=== PATIENT | male | born 1955 | race Caucasian/White ===

== ENCOUNTER 2018-02-03 07:18 | Inpatient (IN) | payer OTHER ==
[~2018-02-03] VITALS: Ht 177.8 cm; Wt 61.3 kg
[~2018-02-03 07:18] MED LIST: ACEPHEN650 M1 PR; ACETAMINOPHEN325 M2 PO; ACETAMINOPHEN325 M3 PO; ALBUTEROL2.5 MG/3 M INH/SOL; AMOX-CLAV 875-1 EACH PO; ANBESOL9 G1 TOP; ATORVASTATIN CA40 M1 PO; AUGMENTIN 875-1 EACH PO; BACLOFEN10 M1 PO; BACLOFEN20 M1 PO; BISACODYL10 M1 RC; CLONAZEPAM0.5 M2 PO; DEPAKOTE SPRIN125 M1 PO; DEPAKOTE125 M1 PO; DEPAKOTE500 M1 PO; DIVALPROEX SOD500 M2 PO; DRISDOL50000 UNIT PO; DULCOLAX10 M1 RC; FENOFIBRATE160 M1 PO; FISH OIL 1,0001 EAC1 PO; FLEET ENEMA133 ML RC; GENERLAC10 GM/151 PO; KLONOPIN0.5 M1 PO; LACTAID3000 UNI1 PO; LACTAID3000 UNIT PO; LACTASE3000 UNIT PO; LACTULOSE10 GM/153 PO; LASIX20 M1 PO; LIPITOR40 M1 PO; LOFIBRA160 M1 PO; MAPAP325 M1 PO; MILK OF MA400 MG/52 PO; NUEDEXTA 20-101 EACH PO; OMEPRAZOLE20 M3 PO; PAIN RELIEVER325 MG PO; PERIOGARD473 ML PO; POTASSIUM CHLO20 ME4 PO; PRILOSEC OTC20 M1 PO; SENNA-GEN8.6 MG PO; SENNA8.6 M3 PO; SERTRALINE HCL100 MG PO; THERA-M1 EACH PO; THERAGRAN PO; TRIHEXYPHENIDYL2 M2 PO; UNASYN 3 GM VIAL3 GM IV; VITAMIN C250 M3 PO; VITAMIN D250000 UNIT PO; ZOLOFT100 M1 PO
--- NOTE | 2018-02-03 07:43 | ED DYSPNEA/ASTHMA COMPLAINT ---
History of Present Illness General Chief Complaint: Dyspnea (COPD, CHF, Other) Stated Complaint: SOB Source: old records, EMS Exam Limitations: unable to give history Vital Signs & Intake/Output Vital Signs & Intake/Output Vital Signs Date Time Temp Pulse Resp B/P B/P Pulse O2 O2 Flow FiO2 Mean Ox Delivery Rate 02/04 1426 98.0 88 20 104/60 92 02/04 0800 95 Room Air Room Air 02/04 0720 97.7 70 20 124/72 98 Nasal 2.0L Cannula 02/04 0000 Room Air 02/03 2104 99.0 93 16 106/58 91 Room Air 02/03 2027 Room Air ED Intake and Output 02/04 0000 02/03 1200 Intake Total 240 Output Total Balance 240 Intake, Oral 240 Number 1 Bowel Movements Patient 135 lb 180 lb Weight Weight Bed scale Estimated Measurement Method Allergies Coded Allergies: lactose (UNKNOWN 02/08/16) Reconcile Medications Acetaminophen 325 MG TABLET 2 TAB PO Q6H PRN PAIN/TEMP>101 (Reported) Acetaminophen (Acephen) 650 MG SUPP.RECT 1 SUPP GA Q6H PRN PAIN/TEMP>101 ( Reported) Ascorbic Acid (Vitamin C) 250 MG TABLET 1 TAB PO BID SUPPLEMENT (Reported) Atorvastatin Calcium 40 MG TABLET 1 TAB PO DAILY CHOLESTEROL (Reported) Baclofen 10 MG TABLET 1.5 TAB PO TID MUSCLE SPASM (Reported) Bisacodyl (Dulcolax) 10 MG SUPP.RECT 1 SUP RC DAILY PRN CONSTIPATION ( Reported) Clonazepam 0.5 MG TABLET 1 TAB PO BID mental health (Reported) Dextromethorphan HBr/Quinidine (Nuedexta 20-10 MG Capsule) 20 MG-10 MG CAPSULE 1 TAB PO BID MOOD STABILITY (Reported) Divalproex Sodium (Depakote) 125 MG TABLET.DR 2 TAB PO 0900 mood stabilizer ( Reported) Divalproex Sodium (Depakote) 125 MG TABLET.DR 4 TAB PO AT BEDTIME MOOD STABILITY (Reported) Ergocalciferol (Vitamin D2) (Vitamin D2) 50,000 UNIT CAPSULE 1 CAP PO Q30D SUPPLEMENT (Reported) Furosemide (Lasix) 20 MG TABLET 1 TAB PO DAILY FLUID RETENTION (Reported) Lactase (Lactaid) 3,000 UNIT TABLET 1 TAB PO TID ENZYME (Reported) Lactulose (Generlac) 10 GM/15 ML SOLUTION 30 ML PO BID CONSTIPATION (Reported ) Magnesium Hydroxide (Milk Of Magnesia) 400 MG/5 ML ORAL.SUSP 30 ML PO Q3D PRN CONSTIPATION (Reported) Multivits,Th W-Fe,Other Min (Thera-M) 1 EACH TABLET 1 TAB PO DAILY SUPPLEMENT (Reported) Na Phos,M-B/Na Phos,Di-Ba (Fleet Enema) 133 ML ENEMA 1 E RC DAILY PRN CONSTIPATION (Reported) Potassium Chloride 20 MEQ TABLET.ER 1 TAB PO DAILY SUPPLEMENT Ranitidine (Ranitidine HCl) 150 MG TABLET 1 TAB PO QPM GI (Reported) Sennosides (Senna-Gen) 8.6 MG TABLET 2 TAB PO DAILY GI (Reported) Sertraline HCl (Zoloft) 100 MG TABLET 1 TAB PO DAILY DEPRESSION (Reported) Triage Note: PT BIBA FROM [facility] C/O SOB.. APRROX AT 0600 PT HAS A BAD NOSE BLEED, PT IS NON VERBAL. PT SAT ON ROOM AIR 82% PT ARRIVES WITH NC 6L 94%. ECF THINKS PT ASPIRATED. PT HAS HX OF DEMENTIA. Triage Nurses Notes Reviewed? yes HPI: Patient presents for evaluation of dyspnea. The patient himself is unable to provide history. According to his nurse and the paramedics the patient had a nose bleeding episode at about 6 AM. After that he began having decreased oxygen saturations and difficulty breathing. He was placed on a nonrebreather mask. This was converted over to a nasal cannula by the EMS crew. Past History Travel History Traveled to [place] past 21 day No Medical History Any Pertinent Medical History? 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 FH: pulmonary embolism Hx Contributory? No Review of Systems Review of Systems Constitutional: Reports: no symptoms. EENTM: Reports: see HPI. Respiratory: Reports: see HPI. Cardiovascular: Reports: no symptoms. GI: Reports: no symptoms. Genitourinary: Reports: no symptoms. Musculoskeletal: Reports: no symptoms. Skin: Reports: no symptoms. Neurological/Psychological: Reports: no symptoms. Hematologic/Endocrine: Reports: no symptoms. Immunologic/Allergic: Reports: no symptoms. All Other Systems: Reviewed and Negative Physical Exam Physical Exam Respiratory: SEE BELOW Comments: Gen.: Well-nourished, well-developed, moderate respiratory distress. Head: Normocephalic, atraumatic. Eyes: Normal inspection bilaterally Ears: Normal inspection bilaterally Nose: Normal inspection (nasal cannula in place)-patient is breathing primarily through his nose Throat/mouth : Moist mucosa Neck: Supple, full range of motion, no goiter Heart: Regular rate and rhythm, no murmurs rubs or gallops Lungs: Decreased air entry bilaterally, occasional congested cough Chest: Nontender Back: Normal range of motion Abdomen: Softly distended with normal bowel sounds Extremities: Normal range of motion grossly, equal radial pulses, no cyanosis clubbing or edema Neurologic: Cranial nerves grossly intact, speech is clear Skin: warm and dry Psychiatric: Calm, nonfocal (unable to assess further) Core Measures ACS in differential dx? No CVA/TIA Diagnosis No Sepsis Present: No Sepsis Focused Exam Completed? No Progress Differential Diagnosis: bronchitis, CHF, COPD, pneumonia Plan of Care: Orders Procedure Date/time Status BASIC ELECTROLYTES PLUS BUN&CR 02/05 0600 Active PHARMACY COMMUNICATION FORM 02/04 UNK Active RT: Evaluation 02/03 2027 Active THERAPIST ORDERS 02/03 UNK Complete Current Medications Sig/Iam Start time Last Medication Dose Stop Time Status Admin Atorvastatin Calcium 40 MG DAILY@1700 02/04 1700 AC 02/04 (Lipitor) 1706 Enoxaparin Sodium 40 MG DAILY@1600 02/04 1600 AC 02/04 (Lovenox) 1706 Baclofen 15 MG TID 02/04 1400 AC 02/04 (Lioresal 10MG 1349 Tablet) Clonazepam 0.5 MG BID 02/04 1235 AC 02/04 (KlonoPIN) 02/11 1234 1349 Famotidine 20 MG DAILY 02/04 1235 AC 02/04 (Pepcid) 1349 Sertraline HCl 100 MG DAILY 02/04 1235 AC 02/04 (Zoloft) 1349 Potassium Chloride 60 MEQ ONCE ONE 02/04 1015 CAN (Klor) 02/04 1016 Ampicillin Sodium/ 3,000 MG Q6 02/03 1800 AC 02/04 Sulbactam Sodium 1706 (Unasyn) Sodium Chloride 100 ML (Normal Saline 0.9%) Acetaminophen 325 MG Q6P PRN 02/03 1430 AC (Tylenol) Bisacodyl 10 MG DAILY NEEDED PRN 02/03 1430 AC (Dulcolax Supp) Laboratory Tests 02/04/18 0628: Anion Gap 12, Estimated GFR > 60, BUN/Creatinine Ratio 16.7, CBC w Diff NO MAN DIFF REQ, RBC 5.01, MCV 80.0, MCH 26.9 L, MCHC 33.6, RDW 14.9 H, MPV 8.6, Gran % 65.8, Lymphocytes % 22.3, Monocytes % 9.9 H, Eosinophils % 1.6, Basophils % 0.4, Absolute Granulocytes 3.9, Absolute Lymphocytes 1.3, Absolute Monocytes 0.6 , Absolute Eosinophils 0.1, Absolute Basophils 0 Diagnostic Imaging: Discussed w/RAD: Radiology Read. Radiology Impression: PATIENT: HALLIE MENDOZA PRESENT AGE: 62 PATIENT ACCOUNT NO: [id number] : 54 LOCATION: [facility] ORDERING PHYSICIAN: Valerio Freedman MD SERVICE DATE: 02/03/18 EXAM TYPE: RAD - XRY-PORTABLE CHEST XRAY EXAMINATION: XR PORTABLE CHEST CLINICAL INFORMATION: Epistaxis and dyspnea COMPARISON: 04/28/2017 TECHNIQUE: Portable frontal view of the chest was obtained. FINDINGS: Lung volumes remain low. There is worsening hazy opacity at the left lung base. There is retrocardiac gas-containing structure consistent with known moderate hiatal hernia. There is increasing adjacent opacity as well suggesting a small pleural effusion and/or increasing consolidation in the right lung is clear. Cardiac silhouette unchanged. Degenerative changes of the bilateral shoulders. Osteopenia. IMPRESSION: Lung volumes remain low. There is worsening hazy opacity at the left lung base; there may be a small pleural effusion in addition to increasing airspace opacity, possibly atelectasis, aspiration, or pneumonia. DICTATED BY: Patrice Nesbitt MD DATE/TIME DICTATED:02/03/18829 DIRECTOR OF GLOBAL SALES:KAREN DATE/TIME TRANSCRIBED:02/03/18829 CONFIDENTIAL, DO NOT COPY WITHOUT APPROPRIATE AUTHORIZATION. <Electronically signed in Other Vendor System> SIGNED BY: Patrice Nesbitt MD 02/03/1890 Initial ED EKG: SINUS TACHYCARDIA WITH A RATE OF [address] SEGMENT CHANGES. Prior EKG: changed (NORMAL SINUS RHYTHM ON PRIOR) Comments: O2 saturation 93% on nasal cannula. Patient seems to be a "nose breather" and keeps his mouth shut despite his respiratory distress. I have asked his nurse to place him on a partial nonrebreather in order to enhance any oxygenation via the mouth. 02/03/2018 11:41:00 AM d/w dr childs. Departure Departure Disposition: STILL A PATIENT Condition: Stable Clinical Impression Primary Impression: Pneumonia Qualifiers: Pneumonia type: aspiration pneumonia Aspiration pneumonia type: unspecified Laterality: left Lung location: lower lobe of lung Qualified Code: J69.0 - Pneumonitis due to inhalation of food and vomit Secondary Impressions: Dependence on supplemental oxygen, Hypoxia Referrals: Luma VELEZ,Esthela Alas (PCP/Family) Departure Forms: Customer Survey General Discharge Information Admission Note Spoke With: Carmita VELEZ,Cristopher Documentation of Exam: Documentation of any treatments & extenuating circumstances including Concerns Regarding Discharge (functional status, medication knowledge or non-compliance, living conditions, etc.) that warrant an admission rather than observation: Patient has a left lower lobe pneumonia and has a history of aspiration previously. He did have an episode of epistaxis earlier this morning raising the concern of an aspiration pneumonitis. He is dependent on relatively high flow oxygen at this time and I do not feel he is a candidate for outpatient management. He does not wear oxygen at his ECF. I feel he is at high risk of worsening hypoxia, sepsis and respiratory failure. Critical Care Note Critical Care Note Critical Care Time: 30-74 min
[2018-02-03] MEDS ORDERED: ZOLOFT100 M1 PO (07:51)
[2018-02-03] MEDS ORDERED: ATORVASTATIN CA40 M1 PO (07:52)
[2018-02-03] MEDS ORDERED: RANITIDINE HCL150 MG PO (07:52)
[2018-02-03 07:58] LABS: ABSOLUTE BASOPHIL COUNT 0 /CUMM (0.0-0.2); ABSOLUTE EOSINOPHIL COUNT 0 /CUMM (0.0-0.7); ABSOLUTE MONOCYTE COUNT 1.1 /CUMM (0.10-0.60); BASOPHIL % 0.2 % (0.0-2.0); EOSINOPHIL % 0.3 % (0-5); GRANULOCYTE % 79.2 % (42.2-75.2); HEMATOCRIT 46.4 % (42-52); MEAN CORPUSCULAR HGB CONC 33.5 G/DL (33.0-37.0); MEAN CORPUSCULAR VOLUME 80.7 FL (80.0-94.0); MEAN PLATELET VOLUME 8.2 FL (7.4-10.4); PLATELET COUNT 199 /CUMM (130-400); RED BLOOD CELL CT 5.75 /CUMM (4.70-6.10); WHITE BLOOD CELL COUNT 10.1 /CUMM (4.8-10.8)
--- NOTE | 2018-02-03 08:35 | RADIOLOGY REPORT ---
EXAMINATION: XR PORTABLE CHEST CLINICAL INFORMATION: Epistaxis and dyspnea COMPARISON: 04/28/2017 TECHNIQUE: Portable frontal view of the chest was obtained. FINDINGS: Lung volumes remain low. There is worsening hazy opacity at the left lung base. There is retrocardiac gas-containing structure consistent with known moderate hiatal hernia. There is increasing adjacent opacity as well suggesting a small pleural effusion and/or increasing consolidation in the right lung is clear. Cardiac silhouette unchanged. Degenerative changes of the bilateral shoulders. Osteopenia. IMPRESSION: Lung volumes remain low. There is worsening hazy opacity at the left lung base; there may be a small pleural effusion in addition to increasing airspace opacity, possibly atelectasis, aspiration, or pneumonia.
--- NOTE | 2018-02-03 13:16 | History & Physical ---
General Information and HPI Allergies/Medications Allergies: Coded Allergies: lactose (UNKNOWN 02/08/16) Home Med list Acetaminophen 325 MG TABLET 2 TAB PO Q6H PRN PAIN/TEMP>101 (Reported) Acetaminophen (Acephen) 650 MG SUPP.RECT 1 SUPP ID Q6H PRN PAIN/TEMP>101 ( Reported) Ascorbic Acid (Vitamin C) 250 MG TABLET 1 TAB PO BID SUPPLEMENT (Reported) Atorvastatin Calcium 40 MG TABLET 1 TAB PO DAILY CHOLESTEROL (Reported) Baclofen 10 MG TABLET 1.5 TAB PO TID MUSCLE SPASM (Reported) Bisacodyl (Dulcolax) 10 MG SUPP.RECT 1 SUP RC DAILY PRN CONSTIPATION ( Reported) Clonazepam 0.5 MG TABLET 1 TAB PO BID mental health (Reported) Dextromethorphan HBr/Quinidine (Nuedexta 20-10 MG Capsule) 20 MG-10 MG CAPSULE 1 TAB PO BID MOOD STABILITY (Reported) Divalproex Sodium (Depakote) 125 MG TABLET.DR 2 TAB PO 0900 mood stabilizer ( Reported) Divalproex Sodium (Depakote) 125 MG TABLET.DR 4 TAB PO AT BEDTIME MOOD STABILITY (Reported) Ergocalciferol (Vitamin D2) (Vitamin D2) 50,000 UNIT CAPSULE 1 CAP PO Q30D SUPPLEMENT (Reported) Furosemide (Lasix) 20 MG TABLET 1 TAB PO DAILY FLUID RETENTION (Reported) Lactase (Lactaid) 3,000 UNIT TABLET 1 TAB PO TID ENZYME (Reported) Lactulose (Generlac) 10 GM/15 ML SOLUTION 30 ML PO BID CONSTIPATION (Reported ) Magnesium Hydroxide (Milk Of Magnesia) 400 MG/5 ML ORAL.SUSP 30 ML PO Q3D PRN CONSTIPATION (Reported) Multivits,Th W-Fe,Other Min (Thera-M) 1 EACH TABLET 1 TAB PO DAILY SUPPLEMENT (Reported) Na Phos,M-B/Na Phos,Di-Ba (Fleet Enema) 133 ML ENEMA 1 E RC DAILY PRN CONSTIPATION (Reported) Potassium Chloride 20 MEQ TABLET.ER 1 TAB PO DAILY SUPPLEMENT Ranitidine (Ranitidine HCl) 150 MG TABLET 1 TAB PO QPM GI (Reported) Sennosides (Senna-Gen) 8.6 MG TABLET 2 TAB PO DAILY GI (Reported) Sertraline HCl (Zoloft) 100 MG TABLET 1 TAB PO DAILY DEPRESSION (Reported) Past History Travel History Traveled to [place] past 21 day No Medical History Neurological: dementia, multiple sclerosisN NEUROGENIC BLADDER EENT: NONE Cardiovascular: NONE Respiratory: pneumonia Gastrointestinal: GERD Hepatic: NONE Renal: UTI Musculoskeletal: NONE Psychiatric: anxiety, depression Endocrine: NONE Blood Disorders: thrombocytopenia 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 FH: pulmonary embolism Psychosocial History Who Do You Live With? self Services at Home: Nursing Primary Language: [place]ian Living Will? no Functional Ability ADLs Needs Assist: dressing, eating, toileting, bathing. Ambulation: bedbound IADLs Needs Assist: shopping, housework, finances, food prep, telephone, transportation, medication admin. Core Measures/Misc (04/10) Sepsis (View protocol) Sepsis Present: Yes If YES complete Sepsis Event Note If YES complete Sepsis Event Note
--- NOTE | 2018-02-03 13:17 | History & Physical ---
Celsa Nicholas MD 02/03/18 1317: General Information and HPI MD Statement: I have seen and personally examined HALLIE MENDOZA and documented this H&P. The patient is a 62 year old M who presented with a patient stated chief complaint of fever, lethargy, shortness of breath Source of Information: family, old records, [facility] Exam Limitations: unable to give history History of Present Illness: 62-year-old male with a past medical history significant for multiple sclerosis, nonverbal and bedbound, dementia, neurogenic bladder, dysphagia with recurrent aspiration, thrombocytopenia, anxiety, depression, GERD that is brought in by ambulance to us from [facility] for fever, lethargy, shortness of breath. Most of the history was taken from the [facility], staff at [facility], and the patient's sister who has been very involved in his care. The sister states that the patient was found to have a very low-grade fever of 100.1 on February 02. He was sent for x-ray which was found to be negative for any acute process. Labs drawn at the time showed a slightly decreased potassium but all else was normal. The patient had some shortness of breath and has a strong history of aspiration pneumonia so was given 1 dose of Levaquin at [facility]. At about 6:30 AM a nurse from [facility] called the patient's sister to tell her that the patient had continued to have fever, this time higher, and had more shortness of breath with desaturations down to 77% on room air so they decided to send him to us. The patient was placed on 5 L nasal cannula and oxygen saturation increased to 97%. The patient only took 1 dose of Levaquin at [facility]. The patient's sister notes that this presentation is common for him as he has been treated many times for aspiration pneumonia. Of note the patient has been having nosebleeds for quite some time, evaluation of the nasal passage showed thin mucosa and his nosebleeds are presumed to be due to that. The patient recently had a Alejandro nosebleed while at [facility]. The patient was seen at [facility] in the fall last year and had a swallow evaluation done with recommendations for pure and pudding thick liquid diet. He was found to have more issues with initiating swallow. The patient has been following that diet throughout his stay at extended care facility. This is his third year's day at [facility]. The sister recounts that in 2016 there is a 3 month span for the patient had several admissions to hospitals for aspiration pneumonia. Of note, patient is also incontinent of both urine and feces. The patient has a social history of smoking for most of his younger adult life. He has no history of drug use. He has a strong family history of multiple sclerosis. Allergies/Medications Allergies: Coded Allergies: lactose (UNKNOWN 02/08/16) Home Med list Acetaminophen 325 MG TABLET 2 TAB PO Q6H PRN PAIN/TEMP>101 (Reported) Acetaminophen (Acephen) 650 MG SUPP.RECT 1 SUPP CA Q6H PRN PAIN/TEMP>101 ( Reported) Ascorbic Acid (Vitamin C) 250 MG TABLET 1 TAB PO BID SUPPLEMENT (Reported) Atorvastatin Calcium 40 MG TABLET 1 TAB PO DAILY CHOLESTEROL (Reported) Baclofen 10 MG TABLET 1.5 TAB PO TID MUSCLE SPASM (Reported) Bisacodyl (Dulcolax) 10 MG SUPP.RECT 1 SUP RC DAILY PRN CONSTIPATION ( Reported) Clonazepam 0.5 MG TABLET 1 TAB PO BID mental health (Reported) Dextromethorphan HBr/Quinidine (Nuedexta 20-10 MG Capsule) 20 MG-10 MG CAPSULE 1 TAB PO BID MOOD STABILITY (Reported) Divalproex Sodium (Depakote) 125 MG TABLET.DR 2 TAB PO 0900 mood stabilizer ( Reported) Divalproex Sodium (Depakote) 125 MG TABLET.DR 4 TAB PO AT BEDTIME MOOD STABILITY (Reported) Ergocalciferol (Vitamin D2) (Vitamin D2) 50,000 UNIT CAPSULE 1 CAP PO Q30D SUPPLEMENT (Reported) Furosemide (Lasix) 20 MG TABLET 1 TAB PO DAILY FLUID RETENTION (Reported) Lactase (Lactaid) 3,000 UNIT TABLET 1 TAB PO TID ENZYME (Reported) Lactulose (Generlac) 10 GM/15 ML SOLUTION 30 ML PO BID CONSTIPATION (Reported ) Magnesium Hydroxide (Milk Of Magnesia) 400 MG/5 ML ORAL.SUSP 30 ML PO Q3D PRN CONSTIPATION (Reported) Multivits,Th W-Fe,Other Min (Thera-M) 1 EACH TABLET 1 TAB PO DAILY SUPPLEMENT (Reported) Na Phos,M-B/Na Phos,Di-Ba (Fleet Enema) 133 ML ENEMA 1 E RC DAILY PRN CONSTIPATION (Reported) Potassium Chloride 20 MEQ TABLET.ER 1 TAB PO DAILY SUPPLEMENT Ranitidine (Ranitidine HCl) 150 MG TABLET 1 TAB PO QPM GI (Reported) Sennosides (Senna-Gen) 8.6 MG TABLET 2 TAB PO DAILY GI (Reported) Sertraline HCl (Zoloft) 100 MG TABLET 1 TAB PO DAILY DEPRESSION (Reported) Compliance With Home Meds: GOOD Past History Travel History Traveled to [place] past 21 day No Medical History Neurological: dementia, multiple sclerosisN NEUROGENIC BLADDER EENT: NONE Cardiovascular: NONE Respiratory: pneumonia Gastrointestinal: GERD Hepatic: NONE Renal: UTI Musculoskeletal: NONE Psychiatric: anxiety, depression Endocrine: NONE Blood Disorders: thrombocytopenia Cancer(s): NONE CURRICULUM WRITER/Reproductive: NONE History of MRSA: No History of VRE: No History of CDIFF: No Surgical History Surgical History: none Past Family/Social History Family History Relations & Conditions if any BROTHER FH: multiple sclerosis MOTHER FH: pancreatic cancer Pulmonary fibrosis FATHER, , Age 50-60. FH: pulmonary embolism Psychosocial History Who Do You Live With? self Services at Home: Nursing Primary Language: Croatian Living Will? no Functional Ability ADLs Needs Assist: dressing, eating, toileting, bathing. Ambulation: bedbound IADLs Needs Assist: shopping, housework, finances, food prep, telephone, transportation, medication admin. Review of Systems Review of Systems Constitutional: Reports: no symptoms (nonverbal). Neurological/Psychological: Reports: cognitive dysfunction. Exam & Diagnostic Data Last 24 Hrs of Vital Signs/I&O Vital Signs Date Time Temp Pulse Resp B/P B/P Pulse O2 O2 Flow FiO2 Mean Ox Delivery Rate 02/03 1511 99.0 91 20 112/74 95 Room Air 02/03 1454 95 Room Air Room Air 02/03 1341 98.0 91 24 115/70 94 Room Air 02/03 1340 94 Nasal 6.0L Cannula 02/03 1030 98.4 110 28 160/78 94 Room Air 02/03 0730 96.6 109 20 149/87 94 02/03 0726 Nasal 6.0L Cannula Intake & Output 02/03 1600 02/03 0800 02/03 0000 Intake Total Output Total Balance Patient 135 lb 180 lb Weight Weight Bed scale Estimated Measurement Method Physical Exam General Appearance Alert, Oriented X3, Cooperative, No Acute Distress Skin No Rashes, No Breakdown, No Significant Lesion Skin Temp/Moisture Exam: Warm/Dry Sepsis Skin Exam (color): Normal for Ethnicity HEENT Atraumatic, EOMI, pale mucous membranes Neck Supple, No JVD, No thryomegaly Cardiovascular Regular Rate, Normal S1, Normal S2, No Murmurs Lungs patient has rhonchi heard mostly on the left side. Abdomen Normal Bowel Sounds, Soft, No Tenderness, No Hepatospenomegaly Extremities No Clubbing, No Cyanosis, No Edema Vascular Normal Pulses Last 24 Hrs of Labs/Ramon: Laboratory Tests 02/03/18 0744: Anion Gap 15, Estimated GFR > 60, BUN/Creatinine Ratio 20.0, Glucose 94, Calcium 9.0, Troponin I < 0.01, CBC w Diff NO MAN DIFF REQ, RBC 5.75, MCV 80.7, MCH 27.0 , MCHC 33.5, RDW 15.0 H, MPV 8.2, Gran % 79.2 H, Lymphocytes % 9.7 L, Monocytes % 10.6 H, Eosinophils % 0.3, Basophils % 0.2, Absolute Granulocytes 8.0 H, Absolute Lymphocytes 1.0 L, Absolute Monocytes 1.1 H, Absolute Eosinophils 0, Absolute Basophils 0 Microbiology 02/03 142 LOWER RESP: Respiratory Culture - ORD 02/03 142 LOWER RESP: Gram Stain - ORD 02/04 1428 BLOOD: Blood Culture - ORD 02/04 1428 BLOOD: Blood Culture - ORD Assessment/Plan Assessment: 62-year-old male with a past medical history significant for multiple sclerosis, nonverbal and bedbound, dementia, neurogenic bladder, dysphagia with recurrent aspiration, thrombocytopenia, anxiety, depression, GERD that is brought in by ambulance to us from [facility] for fever, lethargy, shortness of breath. The patient has had multiple admissions for aspiration pneumonia and has had swallow evaluation done with recommendations to follow a pured and pudding thick liquid diet which the patient has been following while he is an extended care facility. The patient has recently had a few nosebleeds. He had desaturation down to 77% on room air today and required 5 L nasal cannula. Chest x-ray done at the facility showed no abnormality by as the patient was febrile with shortness of breath he was started on Levaquin. In the ED, patient had vital signs of temperature 99.2, heart rate 102, respiratory rate 24, blood pressure 115/70, O2 saturation of 94% on 6 L nasal cannula. Patient was able to breathe on room air and saturating 95% subsequently after respiratory treatment. EKG showed sinus tachycardia at a rate of 105, QTC 434, T-wave inversion at leads 3. CBC was mostly normal, potassium was 3.4, creatinine 0.5, troponin 0.01 Chest x-ray showed worsening hazy opacity at the left lung base with a small pleural effusion in addition to increasing airspace opacity, possibly atelectasis, aspiration, or pneumonia. Assessment Sepsis secondary to pneumonia caused by aspirated bacteria from food or secondary to bloody nose (bacterial/chemical) or pneumonitis caused by aspirate of food or blood Dysphagia on pure and pudding thick diet History of multiple sclerosis Plan -Admit patient to general medical floors for evaluation and treatment -Patient has been given ceftriaxone and azithromycin in the ED but we'll start patient on Unasyn for coverage of anaerobic bacteria 3 g every 6 hours, patient has good renal function and does not need renal dosing -Start fluids D5 half-normal saline at a rate of 50 as patient appears mildly dehydrated area hold patient's Lasix and can restart likely tomorrow or the next day. -TRC nebs -Place patient nothing by mouth and ordered a swallow evaluation -Follow blood and lower respiratory cultures if he is able to produce -Tylenol suppository for fever or pain. Of note patient's sister states that he is sometimes able to communicate but at time of interview patient was not able to. -We have contacted the [facility] and Depakote that was on his medication reconcile is not being given and has not been given for some time. -Follow physical therapy evaluation -Nutrition evaluation DNR/DNI Patient is nothing by mouth DT prophylaxis with Lovenox As Ranked By This Provider Problem List: 1. Multiple sclerosis 2. Aspiration pneumonia 3. Aspiration pneumonitis 4. Dependence on supplemental oxygen Core Measures/Misc (04/10) Acute Coronary Syndrome ACS Diagnosis: No Congestive Heart Failure Congestive Heart Failure Diagnosis No Cerebrovascular Accident CVA/TIA Diagnosis: No VTE (View Protocol) VTE Risk Factors Immobility No Mechanical VTE Prophylaxis d/t LowRisk-No Interven Req'd No VTE Pharm Prophylaxis d/t NA PharmProphylax ordered Sepsis (View protocol) Sepsis Present: Yes If YES complete Sepsis Event Note If YES complete Sepsis Event Note Ashley Haji MD 02/03/18 1406: Core Measures/Misc (04/10) Sepsis (View protocol) If YES complete Sepsis Event Note If YES complete Sepsis Event Note Attending MD Review Statement Attending Statement Attending MD Statement: examined this patient, discuss w/resident/PA/REMOTE CONTROL MIRROR INSTALLER, agreed w/resident/PA/REMOTE CONTROL MIRROR INSTALLER, reviewed EMR data (avail), discussed with nursing, reviewed images Attending Assessment/Plan: 62-year-old male with advanced multiple sclerosis, questionable dementia and nonverbal bedbound state with functional quadriplegia in a [facility]. As per the [facility] staff he had an episode of epistaxis early this morning and subsequently developed acute hypoxemic respiratory failure requiring 6 L of oxygen to maintain a saturation of 90% or greater - 77 percent on ra. The [facility] staff a worried that he may have aspirated. He is afebrile does have mild leukocytosis a chest x-ray that shows an opacity in the left lower base and as stated acute hypoxemic respiratory failure. At this point will bring him into [facility], will treat him for an aspiration pneumonia after we get blood cultures and sputum cultures. Will keep him nothing by mouth until we get a swallow evaluation off note he did have dysphagia last time and his diet was changed by speech and swallow therapy. Will convert what we can of his medications to IV pending the swallow eval. DVT prophylaxis and f/u
--- NOTE | 2018-02-03 13:53 | Admission Certification ---
Admission Certification Certification Statement - As attending physician, I certify that at the time of - admission, based on clinical presentation, severity of - symptoms, need for further diagnostic testing and - therapeutic interventions, and risk of adverse outcomes - without in-hospital treatment, in my clinical assessment, - this patient requires an acute hospital stay for a minimum - of two nights or longer. I have also considered psychsocial - factors such as support system, advanced age, financial - issues, cognitive issues, and failed out-patient treatments, - past re-admission history, safety of patient, and lack of - compliance as applicable. Specific rationale supporting this admission is: Aspiration pneumonia in patient with functional quadriplegia and nonverbal state.
[2018-02-03 15:11] VITALS: BP 112/74
[2018-02-03 21:04] VITALS: BP 106/58
[2018-02-04 07:20] VITALS: BP 124/72
[2018-02-04 08:25] LABS: ABSOLUTE BASOPHIL COUNT 0 /CUMM (0.0-0.2); ABSOLUTE EOSINOPHIL COUNT 0.1 /CUMM (0.0-0.7); ABSOLUTE GRANULOCYTE CT 3.9 /CUMM (1.4-6.5); ABSOLUTE LYMPH COUNT 1.3 /CUMM (1.2-3.4); ABSOLUTE MONOCYTE COUNT 0.6 /CUMM (0.10-0.60); BASOPHIL % 0.4 % (0.0-2.0); EOSINOPHIL % 1.6 % (0-5); GRANULOCYTE % 65.8 % (42.2-75.2); MEAN CORPUSCULAR HGB 26.9 PG (27.0-31.0); MEAN CORPUSCULAR HGB CONC 33.6 G/DL (33.0-37.0); MEAN PLATELET VOLUME 8.6 FL (7.4-10.4); PLATELET COUNT 196 /CUMM (130-400); RBC DISTRIBUTION WIDTH 14.9 % (11.5-14.5); RED BLOOD CELL CT 5.01 /CUMM (4.70-6.10); WHITE BLOOD CELL COUNT 5.9 /CUMM (4.8-10.8)
[2018-02-04 09:23] LABS: HEMATOCRIT 40.1 % (42-52)
--- NOTE | 2018-02-04 10:11 | PN- Housestaff ---
See Addendum Subjective Follow-up For: Sepsis secondary to likely aspiration pneumonia Swallowing difficulties Multiple sclerosis Bedbound and mostly nonverbal Subjective: Patient seen and examined. He is nonverbal. No changes from yesterday. Vital signs are stable and the patient is on room air at the time of interview, earlier this morning was on 2 L nasal cannula. Review of Systems Constitutional: Reports: no symptoms (nonverbal). Objective Last 24 Hrs of Vital Signs/I&O Vital Signs Date Time Temp Pulse Resp B/P B/P Pulse O2 O2 Flow FiO2 Mean Ox Delivery Rate 02/04 0800 95 Room Air Room Air 02/04 0720 97.7 70 20 124/72 98 Nasal 2.0L Cannula 02/04 0000 Room Air 02/03 2104 99.0 93 16 106/58 91 Room Air 02/03 2027 Room Air 02/03 1511 99.0 91 20 112/74 95 Room Air 02/03 1454 95 Room Air Room Air 02/03 1341 98.0 91 24 115/70 94 Room Air 02/03 1340 94 Nasal 6.0L Cannula Intake & Output 02/04 1600 02/04 0800 02/04 0000 Intake Total 880 240 Output Total Balance 880 240 Intake, IV 640 Intake, Oral 240 240 Number 0 1 Bowel Movements Physical Exam General Appearance: Alert, No Acute Distress Skin: No Rashes, No Breakdown, No Significant Lesion Skin Temp/Moisture Exam: Warm/Dry HEENT: Atraumatic, PERRLA, EOMI Neck: Supple, No JVD Cardiovascular: Regular Rate, Normal S1, Normal S2, No Murmurs Lungs: Clear to Auscultation, Normal Air Movement Abdomen: Normal Bowel Sounds, Soft, No Tenderness Extremities: No Clubbing, No Cyanosis, No Edema Current Medications: Current Medications Sig/Iam Start time Last Medication Dose Route Stop Time Status Admin Acetaminophen 325 MG Q6P PRN 02/03 1430 AC SC Ampicillin Sodium/ 3,000 MG Q6 02/03 1800 AC 02/04 Sulbactam Sodium IV 1118 Sodium Chloride 100 ML Ampicillin Sodium/ 3,000 MG Q6H 02/03 1427 DC Sulbactam Sodium IV Sodium Chloride 100 ML Atorvastatin Calcium 40 MG DAILY@1700 02/04 1700 AC PO Baclofen 15 MG TID 02/04 1400 AC PO Bisacodyl 10 MG DAILY NEEDED PRN 02/03 1430 AC SC Ceftriaxone Sodium 0 .STK-MED ONE 02/03 1354 DC .ROUTE Clonazepam 0.5 MG BID 02/04 1235 AC PO 02/11 1234 Dextrose/Sodium 1,000 ML Q20H 02/03 1430 DC 02/03 Chloride IV 1515 Enoxaparin Sodium 40 MG DAILY@1600 02/04 1600 AC SC Enoxaparin Sodium 40 MG DAILY 02/03 1426 DC 02/03 SC 1552 Famotidine 20 MG DAILY 02/04 1235 AC PO Furosemide 20 MG DAILY 02/04 1235 DC PO Potassium Chloride 10 MEQ Q1H 02/04 1100 DC 02/04 IV 02/04 1201 1217 Potassium Chloride 60 MEQ ONCE ONE 02/04 1015 CAN PO 02/04 1016 Sertraline HCl 100 MG DAILY 02/04 1235 AC PO Last 24 Hrs of Lab/Ramon Results Last 24 Hrs of Labs/Mics: Laboratory Tests 02/04/18 0628: Anion Gap 12, Estimated GFR > 60, BUN/Creatinine Ratio 16.7, CBC w Diff NO MAN DIFF REQ, RBC 5.01, MCV 80.0, MCH 26.9 L, MCHC 33.6, RDW 14.9 H, MPV 8.6, Gran % 65.8, Lymphocytes % 22.3, Monocytes % 9.9 H, Eosinophils % 1.6, Basophils % 0.4, Absolute Granulocytes 3.9, Absolute Lymphocytes 1.3, Absolute Monocytes 0.6 , Absolute Eosinophils 0.1, Absolute Basophils 0 Microbiology 02/03 1622 BLOOD: Blood Culture - RES 02/03 1604 BLOOD: Blood Culture - RES 02/03 142 LOWER RESP: Respiratory Culture - COLB 02/04 1428 LOWER RESP: Gram Stain - COLB Assessment/Plan Assessment: 62-year-old male with a past medical history significant for multiple sclerosis, nonverbal and bedbound, dementia, neurogenic bladder, dysphagia with recurrent aspiration, thrombocytopenia, anxiety, depression, GERD that is brought in by ambulance to us from [facility] for fever, lethargy, shortness of breath. The patient has had multiple admissions for aspiration pneumonia and has had swallow evaluation done with recommendations to follow a pured and pudding thick liquid diet which the patient has been following while he is an extended care facility. The patient has recently had a few nosebleeds. He had desaturation down to 77% on room air today and required 5 L nasal cannula. Chest x-ray done at the facility showed no abnormality by as the patient was febrile with shortness of breath he was started on Levaquin. In the ED, patient had vital signs of temperature 99.2, heart rate 102, respiratory rate 24, blood pressure 115/70, O2 saturation of 94% on 6 L nasal cannula. Patient was able to breathe on room air and saturating 95% subsequently after respiratory treatment. EKG showed sinus tachycardia at a rate of 105, QTC 434, T-wave inversion at leads 3. CBC was mostly normal, potassium was 3.4, creatinine 0.5, troponin 0.01 Chest x-ray showed worsening hazy opacity at the left lung base with a small pleural effusion in addition to increasing airspace opacity, possibly atelectasis, aspiration, or pneumonia. Assessment Sepsis secondary to pneumonia caused by aspirated bacteria from food or secondary to bloody nose (bacterial/chemical) or pneumonitis caused by aspirate of food or blood Dysphagia on pure and pudding thick diet History of multiple sclerosis Plan -Admitted patient to general medical floors for evaluation and treatment -Patient has been given ceftriaxone and azithromycin in the ED but we are continuing patient on Unasyn for coverage of anaerobic bacteria 3 g every 6 hours, patient has good renal function and does not need renal dosing. WBC continues to be normal today -Supplemented potassium with 2 doses of 10 mEq IV as patient cannot tolerate K- Mirna or large pills -Patient has good by mouth intake so we will DC the fluids. We will hold off restarting Lasix until possibly tomorrow as he was dehydrated on intake. -TRC nebs -Swallow evaluation done and suggested continued pured and pudding thick -Follow blood and lower respiratory cultures if he is able to produce -We have contacted the long term and Depakote that was on his medication reconcile is not being given and has not been given for some time. -Follow physical therapy evaluation -Nutrition evaluation -Continue home medications Lipitor, baclofen, sertraline, Pepcid in place of ranitidine, Klonopin. DNR/DNI Regular diet, pured and pudding thick DT prophylaxis with Lovenox Problem List: 1. Multiple sclerosis 2. Aspiration pneumonia Pain Ratin Pain Location: na Pain Goal: Remain pain free Pain Plan: na Tomorrow's Labs & Rationales: bep
--- NOTE | 2018-02-04 10:34 | Patient Discharge Instructions ---
Discharge Instructions General Discharge Information You were seen/treated for: aspiration pneumonia dysphagia Special Instructions: 1. please follow up with PCP in one week 2. please maintain pureed diet and pudding thick liquids 3. please repeat BEP for hypernatremia in one week on 02/13 Diet Continue normal diet: Yes Additional DIET Information: Continue pureed and pudding thick Please give thickened free water 250 cc q4 hours. Activity Full Activity/No Limits: Yes (as tolerated) Acute Coronary Syndrome Inclusion Criteria At DC or during hospital stay patient has or had the following: ACS DIAGNOSIS No Discharge Core Measures Meds if any: Prescribed or Continued at Discharge Meds if any: NOT Prescribed or Continued at Discharge Congestive Heart Failure Inclusion Criteria At DC or during hospital stay patient has or had the following: CHF DIAGNOSIS No Discharge Core Measures Meds if any: Prescribed or Continued at Discharge Meds if any: NOT Prescribed or Continued at Discharge Cerebrovascular accident Inclusion Criteria At DC or during hospital stay patient has or had the following: CVA/TIA Diagnosis No Discharge Core Measures Meds if any: Prescribed or Continued at Discharge Meds if any: NOT Prescribed or Continued at Discharge Venous thromboembolism Inclusion Criteria VTE Diagnosis No VTE Type NONE VTE Confirmed by (Test) NONE Discharge Core Measures - Per Current guidelines, there needs to be overlap - treatment for the first 5 days of Warfarin therapy. - If discharged on Warfarin prior to 5 days of - overlap therapy, the patient will need to be - assessed for post discharge needs including - *Post discharge parental anticoagulation - *Warfarin and/or parental anticoagulation education - *Follow up date to check INR post discharge At least 5 days overlap therapy as Inpatient No Meds if any: Prescribed or Continued at Discharge Note: Overlap Therapy is Warfarin and Anticoagulant Meds if any: NOT Prescribed or Continued at Discharge
--- NOTE | 2018-02-04 13:17 | Discharge Summary ---
Visit Information Visit Dates Admission Date: 02/03/18 Discharge Date: 02/07/18 Hospital Course Course Attending Physician: Annette Boykin MD Primary Care Physician: Esthela Ge MD Hospital Course: 62-year-old male with a past medical history significant for multiple sclerosis, nonverbal and bedbound, dementia, neurogenic bladder, dysphagia with recurrent hospital admissions for aspiration, thrombocytopenia, anxiety, depression, GERD that is brought in by ambulance to us from [facility] for fever, lethargy, shortness of breath. The patient has had multiple admissions for aspiration pneumonia and has had swallow evaluation done with recommendations to follow a pured and pudding thick liquid diet when he was last with us which the patient has been following while he is an extended care facility. The patient has recently had a few nosebleeds. He had desaturation down to 77% on room air and required 5 L nasal cannula. Chest x-ray done at the facility showed no abnormality but as the patient was febrile with shortness of breath he was started on Levaquin. In the ED, patient had vital signs of temperature 99.2, heart rate 102, respiratory rate 24, blood pressure 115/70, O2 saturation of 94% on 6 L nasal cannula. Patient was able to breathe on room air and saturating 95% subsequently after respiratory treatment. EKG showed sinus tachycardia at a rate of 105, QTC 434, T-wave inversion at leads 3. CBC was mostly normal, potassium was 3.4, creatinine 0.5, troponin 0.01 Chest x-ray showed worsening hazy opacity at the left lung base with a small pleural effusion in addition to increasing airspace opacity, possibly atelectasis, aspiration, or pneumonia. Problems List: Sepsis secondary to pneumonia caused by aspirated bacteria from food or secondary to bloody nose (bacterial/chemical) or pneumonitis caused by aspirate of food or blood Dysphagia on pure and pudding thick diet History of multiple sclerosis with functional quadripalegia Hospital Course Patient was admitted to general medical floors for evaluation and treatment. Patient had been given ceftriaxone and azithromycin in the ED but we are started patient on Unasyn for coverage of anaerobic bacteria 3 g every 6 hours, patient has good renal function and did not need renal dosing. WBC was normal at admission and continued to be for the length of his stay. Abx were switched to Augmentin 875 mg bid when patient more stable for anticipated discharge, to complete a 7 day course. No growth on respiratory and blood cultures. [facility] nebs were ordered for him on admission. He was held NPO pending swallow evaluation which stated to continue puree and pudding thick. We began fluids when he was NPO. As he appeared dry on admission, we held his lasix. Patient had good by mouth intake once we started a diet so we DC'd the fluids. We held off restarting Lasix until day 3 of his admission. Potassium was found to be low so we supplemented potassium with 2 doses of 10 mEq IV as patient cannot tolerate K -Mirna or large pills. Patient was found to be mildly hypernatremic here at 146, we gave one 500cc dose of D5W at a rate of 100 cc/h and he also recommended 250 cc every 6 hours of thickened water which the patient tolerated. On repeat BEP, his sodium was 147 so his Lasix was held. BEP after that was back to 146 so we are suggesting repeat BEP in 1 week at the retirement facility and continuation of 250 cc of thickened water every 4 hours. Of note we [facility] and Depakote that was on his medication reconcile is not being given and has not been given for some time. As confirmed with tonio hook, current outpatient medications included Lipitor, baclofen, sertraline, Pepcid, Klonopin. Allergies: Coded Allergies: lactose (UNKNOWN 02/08/16) Disposition Summary Disposition Principal Diagnosis: aspiration pneumonia Additional Diagnosis: dysphagia Discharge Disposition: SNF Discharge Instructions General Discharge Information Code Status: Do Not Resucitate/Intubat Patient's Diet: regular puree and pudding thick Patient's Activity: as tolerated Follow-Up Instructions/Appts: 1. please follow up with PCP in one week 2. please maintain pureed diet and pudding thick liquids Medications at Discharge Discharge Medications: Stop taking the following medications: Divalproex Sodium (Depakote) 125 MG TABLET.DR ROY 0900 Divalproex Sodium (Depakote) 125 MG TABLET.DR ROY AT BEDTIME Continue taking these medications: Ascorbic Acid (Vitamin C) 250 MG TABLET 1 Tablet ORAL TWICE DAILY Comments: NOT GIVEN IN HOSPITAL Magnesium Hydroxide (Milk Of Magnesia) 400 MG/5 ML ORAL.SUSP 30 Milliliters ORAL Every 3 days as needed for CONSTIPATION Comments: Last Taken: NOT GIVEN IN HOSPITAL Na Phos,M-B/Na Phos,Di-Ba (Fleet Enema) 133 ML ENEMA 1 Enema RECTAL DAILY as needed for CONSTIPATION Comments: Last Taken: NOT GIVEN IN HOSPITAL Bisacodyl (Dulcolax) 10 MG SUPP.RECT 1 Suppository RECTAL DAILY as needed for CONSTIPATION Comments: NOT GIVEN IN HOSPITAL Multivits,Th W-Fe,Other Min (Thera-M) 1 EACH TABLET 1 Tablet ORAL DAILY Comments: NOT GIVEN IN HOSPITAL Ergocalciferol (Vitamin D2) (Vitamin D2) 50,000 UNIT CAPSULE 1 Capsule ORAL ONCE A MONTH Comments: NOT GIVEN IN HOSPITAL Acetaminophen (Acetaminophen) 325 MG TABLET 2 Tablet ORAL Q6H as needed for PAIN/TEMP>101 Comments: NOT GIVEN IN HOSPITAL Lactase (Lactaid) 3,000 UNIT TABLET 1 Tablet ORAL THREE TIMES DAILY Comments: NOT GIVEN IN HOSPITAL Acetaminophen (Acephen) 650 MG SUPP.RECT 1 SUPPOSITORY RECTALLY Q6H as needed for PAIN/TEMP>101 Comments: NOT GIVEN IN HOSPITAL Baclofen (Baclofen) 10 MG TABLET 1.5 Tablet ORAL THREE TIMES DAILY Qty = 30 Comments: Last Taken: 02/07/18 Time: 0940 AM Dextromethorphan HBr/Quinidine (Nuedexta 20-10 MG Capsule) 20 MG-10 MG CAPSULE 1 Tablet ORAL TWICE DAILY Comments: NOT GIVEN IN HOSPITAL Clonazepam (Clonazepam) 0.5 MG TABLET 1 Tablet ORAL TWICE DAILY Comments: Last Taken:02/07/18 Time: 0940 AM Potassium Chloride (Potassium Chloride) 20 MEQ TABLET.ER 1 Tablet ORAL DAILY Qty = 30 Comments: Last Taken:02/07/18 Time:0940 AM POWDER Sertraline HCl (Zoloft) 100 MG TABLET 1 Tablet ORAL DAILY Comments: Last Taken:02/07/18 Time:0940 AM Atorvastatin Calcium (Atorvastatin Calcium) 40 MG TABLET 1 Tablet ORAL DAILY Comments: Last Taken:02/06/18 Time:5:30 PM Ranitidine (Ranitidine HCl) 150 MG TABLET 1 Tablet ORAL Every night Comments: NOT GIVEN IN HOSPITAL Start taking the following new medications: Amoxicillin/Clavulanate Potass (Amox-Clav 875-125 MG Tablet) 875 MG-125 MG TABLET 875 Milligram ORAL EVERY 12 HOURS Qty = 6 No Refills Comments: Last Taken:02/07/18 Time:0940 AM The following medications have been changed: Old: Lactulose (Generlac) 10 GM/15 ML SOLUTION 30 Milliliters ORAL TWICE DAILY New: Lactulose (Generlac) 10 GM/15 ML SOLUTION 30 Milliliters ORAL TWICE DAILY Qty = 30 Instructions: Hold for loose stool Comments: Last Taken: NOT GIVEN IN HOSPITAL Old: Sennosides (Senna-Gen) 8.6 MG TABLET 2 Tablet ORAL DAILY New: Sennosides (Senna-Gen) 8.6 MG TABLET 2 Tablet ORAL DAILY Qty = 30 Instructions: hold for loose stool Comments: Last Taken: NOT GIVEN IN HOSPITAL Time: Old: Furosemide (Lasix) 20 MG TABLET 1 Tablet ORAL DAILY New: Furosemide (Lasix) 20 MG TABLET 1 Tablet ORAL DAILY Qty = 30 Instructions: Resume on 02/09/18 Comments: Last Taken:02/06/18 Time:1025 AM Copies To: Esthela Ge MD
[2018-02-04 14:26] VITALS: BP 104/60
[2018-02-04 22:12] VITALS: BP 108/60
[2018-02-05 06:32] VITALS: BP 120/68
--- NOTE | 2018-02-05 11:24 | PN- Housestaff ---
Roni Patel 02/05/18 1124: Subjective Follow-up For: Sepsis Subjective: Patient seen and examined at bedside, no acute events overnight, afebrile. Patient being fed lunch, is non-verbal. Denies: headaches, vision changes, difficulty or pain with swallowing, chest pain, cough, SOB, abdominal pain. Review of Systems Constitutional: Reports: see HPI. Objective Last 24 Hrs of Vital Signs/I&O Vital Signs Date Time Temp Pulse Resp B/P B/P Pulse O2 O2 Flow FiO2 Mean Ox Delivery Rate 02/05 0632 99.3 72 20 120/68 93 02/04 2245 88 02/04 2212 99.7 18 18 108/60 93 Room Air 02/04 1426 98.0 88 20 104/60 92 Intake & Output 02/05 1600 02/05 0800 02/05 0000 Intake Total 480 250 Output Total Balance 480 250 Intake, IV 240 10 Intake, Oral 240 240 Number 1 1 1 Bowel Movements Physical Exam General Appearance: Alert, Oriented X3, Cooperative HEENT: Atraumatic, EOMI Cardiovascular: Regular Rate, Normal S1, Normal S2 Lungs: Clear to Auscultation, Normal Air Movement Abdomen: Normal Bowel Sounds, Soft, No Tenderness Extremities: No Cyanosis, No Edema, Normal Pulses Assessment/Plan Assessment: 62-year-old male with a past medical history significant for multiple sclerosis, nonverbal and bedbound, dementia, neurogenic bladder, dysphagia with recurrent aspiration, thrombocytopenia, anxiety, depression, GERD that is brought in by ambulance to us from [facility] for fever, lethargy, shortness of breath. The patient has had multiple admissions for aspiration pneumonia and has had swallow evaluation done with recommendations to follow a pured and pudding thick liquid diet which the patient has been following while he is an extended care facility. The patient has recently had a few nosebleeds. He had desaturation down to 77% on room air today and required 5 L nasal cannula. Chest x-ray done at the facility showed no abnormality by as the patient was febrile with shortness of breath he was started on Levaquin. In the ED, patient had vital signs of temperature 99.2, heart rate 102, respiratory rate 24, blood pressure 115/70, O2 saturation of 94% on 6 L nasal cannula. Patient was able to breathe on room air and saturating 95% subsequently after respiratory treatment. EKG showed sinus tachycardia at a rate of 105, QTC 434, T-wave inversion at leads 3. CBC was mostly normal, potassium was 3.4, creatinine 0.5, troponin 0.01 Chest x-ray showed worsening hazy opacity at the left lung base with a small pleural effusion in addition to increasing airspace opacity, possibly atelectasis, aspiration, or pneumonia. Assessment Sepsis secondary to pneumonia caused by aspirated bacteria from food or secondary to bloody nose (bacterial/chemical) or pneumonitis caused by aspirate of food or blood Dysphagia on pure and pudding thick diet History of multiple sclerosis Plan -Admitted patient to general medical floors for evaluation and treatment -Patient has been given ceftriaxone and azithromycin in the ED but we are continuing patient on Unasyn for coverage of anaerobic bacteria 3 g every 6 hours, patient has good renal function and does not need renal dosing. WBC continues to be normal today -Supplemented potassium with 2 doses of 10 mEq IV as patient cannot tolerate K- Mirna or large pills -Patient has good by mouth intake so we will DC the fluids. We will hold off restarting Lasix until possibly tomorrow as he was dehydrated on intake. -[facility] nebs -Swallow evaluation done and suggested continued pured and pudding thick -Follow blood and lower respiratory cultures if he is able to produce -We have contacted the detention and Depakote that was on his medication reconcile is not being given and has not been given for some time. -Follow physical therapy evaluation -Nutrition evaluation -Continue home medications Lipitor, baclofen, sertraline, Pepcid in place of ranitidine, Klonopin. Restart Lasix, Replenished K+, Follow BEP tomorrow DNR/DNI Regular diet, pured and pudding thick DT prophylaxis with Lovenox Problem List: 1. Hypoxia Pain Ratin Pain Location: n/a Pain Goal: Remain pain free Pain Plan: n/a Tomorrow's Labs & Rationales: bep Jennifer Mendenhall 02/05/18 1855: Attending MD Review Statement Attending Statement Attending MD Statement: examined this patient, discuss w/resident/PA/[employer]EV[employer]UFA[employer]URING ENGINEER, agreed w/resident/PA/[employer]EV[employer]UFA[employer]URING ENGINEER, reviewed EMR data (avail), discussed with nursing Attending Assessment/Plan: Restart patient back on po lasix 20mg daily and along with K supplements. pt eating ok now. Saturating 93 % on RA. Hypokalemia- potassium replaced. Plan will be to dc pt on po abx tomorrow.
[2018-02-05 14:00] VITALS: BP 114/72
[2018-02-05 21:17] VITALS: BP 118/80
[2018-02-06 06:34] VITALS: BP 139/73
--- NOTE | 2018-02-06 07:58 | PN- Housestaff ---
Subjective Follow-up For: Sepsis secondary to likely aspiration pneumonia Swallowing difficulties Multiple sclerosis Bedbound and mostly nonverbal Subjective: Patient seen and examined. He is being fed at the time of interview. He is able to answer some questions by nodding his head. He denies any pain or shortness of breath. His vitals are stable. He does have a cough. Review of Systems Constitutional: Reports: no symptoms. Cardiovascular: Reports: no symptoms. Respiratory: Reports: no symptoms. Gastrointestinal: Reports: no symptoms. Musculoskeletal: Reports: no symptoms. Objective Last 24 Hrs of Vital Signs/I&O Vital Signs Date Time Temp Pulse Resp B/P B/P Pulse O2 O2 Flow FiO2 Mean Ox Delivery Rate 02/06 1439 97.9 72 18 110/80 95 Room Air 02/06 1319 Room Air Room Air 02/06 0913 76 114/60 94 Room Air 02/06 0634 98.1 80 20 139/73 94 Room Air 02/05 2117 99.3 71 17 118/80 94 Room Air Intake & Output 02/06 1600 02/06 0800 02/06 0000 Intake Total 870 260 160 Output Total Balance 870 260 160 Intake, IV 500 200 Intake, Oral 370 60 160 Number 2 1 Bowel Movements Physical Exam General Appearance: Alert, Cooperative, No Acute Distress Skin: No Rashes, No Breakdown, No Significant Lesion Skin Temp/Moisture Exam: Warm/Dry HEENT: Atraumatic, PERRLA, EOMI, Mucous Membr. moist/pink Cardiovascular: Regular Rate, Normal S1, Normal S2, No Murmurs Lungs: RHONCHI THROUGHOUT Abdomen: Normal Bowel Sounds, Soft Neurological: NONVERBAL AND BEDBOUND SECONDARY TO MS Extremities: No Clubbing, No Cyanosis, No Edema Current Medications: Current Medications Sig/Iam Start time Last Medication Dose Route Stop Time Status Admin Acetaminophen 325 MG Q6P PRN 02/03 1430 AC TX Albuterol Sulfate 3 ML BID 02/06 1434 AC 02/06 INH 1444 Amoxicillin/ 875 MG Q12 02/06 2100 AC Clavulanate Potassium PO Ampicillin Sodium/ 3,000 MG Q6 02/03 1800 DC 02/06 Sulbactam Sodium IV 1130 Sodium Chloride 100 ML Atorvastatin Calcium 40 MG DAILY@1700 02/04 1700 AC 02/05 PO 1728 Baclofen 15 MG TID 02/04 1400 AC 02/06 PO 1353 Bisacodyl 10 MG DAILY NEEDED PRN 02/03 1430 AC TX Clonazepam 0.5 MG BID 02/04 1235 AC 02/06 PO 02/11 1234 1025 Dextrose/Water 500 ML BOLUS ONE 02/06 1000 DC 02/06 IV 02/06 1459 1024 Enoxaparin Sodium 40 MG DAILY@1600 02/04 1600 AC 02/05 SC 1729 Famotidine 20 MG DAILY 02/04 1235 AC 02/06 PO 1025 Furosemide 20 MG DAILY 02/05 1430 AC 02/06 PO 1025 Potassium Chloride 10 MEQ Q1H 02/06 1000 DC 02/06 IV 02/06 1101 1223 Potassium Chloride 20 MEQ DAILY 02/06 0900 AC 02/06 PO 1025 Sertraline HCl 100 MG DAILY 02/04 1235 AC 02/06 PO 1025 Last 24 Hrs of Lab/Ramon Results Last 24 Hrs of Labs/Mics: Laboratory Tests 02/06/18 1025: CBC w Diff NO MAN DIFF REQ, RBC 5.07, MCV 79.8 L, MCH 27.0, MCHC 33.9, RDW 14.5 , MPV 8.5, Gran % 71.6, Lymphocytes % 19.6 L, Monocytes % 6.9, Eosinophils % 1.6, Basophils % 0.3, Absolute Granulocytes 4.2, Absolute Lymphocytes 1.2, Absolute Monocytes 0.4, Absolute Eosinophils 0.1, Absolute Basophils 0 02/06/18 0735: Anion Gap 9, Estimated GFR > 60, BUN/Creatinine Ratio 5.0 L Assessment/Plan Assessment: 62-year-old male with a past medical history significant for multiple sclerosis, nonverbal and bedbound, dementia, neurogenic bladder, dysphagia with recurrent aspiration, thrombocytopenia, anxiety, depression, GERD that is brought in by ambulance to us from [facility] for fever, lethargy, shortness of breath. The patient has had multiple admissions for aspiration pneumonia and has had swallow evaluation done with recommendations to follow a pured and pudding thick liquid diet which the patient has been following while he is an extended care facility. The patient has recently had a few nosebleeds. He had desaturation down to 77% on room air today and required 5 L nasal cannula. Chest x-ray done at the facility showed no abnormality by as the patient was febrile with shortness of breath he was started on Levaquin. In the ED, patient had vital signs of temperature 99.2, heart rate 102, respiratory rate 24, blood pressure 115/70, O2 saturation of 94% on 6 L nasal cannula. Patient was able to breathe on room air and saturating 95% subsequently after respiratory treatment. EKG showed sinus tachycardia at a rate of 105, QTC 434, T-wave inversion at leads 3. CBC was mostly normal, potassium was 3.4, creatinine 0.5, troponin 0.01 Chest x-ray showed worsening hazy opacity at the left lung base with a small pleural effusion in addition to increasing airspace opacity, possibly atelectasis, aspiration, or pneumonia. Assessment Sepsis secondary to pneumonia caused by aspirated bacteria from food or secondary to bloody nose (bacterial/chemical) or pneumonitis caused by aspirate of food or blood Dysphagia on pure and pudding thick diet History of multiple sclerosis Mild hypernatremia Plan -Admitted patient to general medical floors for evaluation and treatment -Patient has been given ceftriaxone and azithromycin in the ED but we continued patient on Unasyn for coverage of anaerobic bacteria 3 g every 6 hours. Today, we will start patient on Augmentin 875 mg twice daily. -Supplemented potassium with 2 doses of 10 mEq IV as patient cannot tolerate K- Mirna or large pills. We will continue to check BEP and replete potassium as needed. -Patient was dehydrated on admission so we gave fluids and her Lasix. We restarted the patient's Lasix yesterday and will continue checking BEP and likely dosing with potassium. -Patient had mild hypernatremia today of 146. We will give 500 cc at 100 cc/h D5W and will also advised 250 cc of thick water by mouth every 6 hours. We will recheck his sodium level at 7 PM tonight and if it is further increased then we will hold his morning Lasix. -[facility] nebs for suction -Swallow evaluation done and suggested continued pured and pudding thick -Follow blood and lower respiratory cultures if he is able to produce -We have contacted the [facility] and [place] that was on his medication reconcile is not being given and has not been given for some time. -Follow physical therapy evaluation -Nutrition evaluation -Continue home medications Lipitor, baclofen, sertraline, Pepcid in place of ranitidine, Klonopin. DNR/DNI Regular diet, pured and pudding thick DT prophylaxis with Lovenox Problem List: 1. Multiple sclerosis 2. Aspiration pneumonia Pain Ratin Pain Location: na Pain Goal: Remain pain free Pain Plan: na Tomorrow's Labs & Rationales: bep
[2018-02-06 09:13] VITALS: BP 114/60
[2018-02-06 11:40] LABS: ABSOLUTE BASOPHIL COUNT 0 /CUMM (0.0-0.2); ABSOLUTE EOSINOPHIL COUNT 0.1 /CUMM (0.0-0.7); ABSOLUTE GRANULOCYTE CT 4.2 /CUMM (1.4-6.5); ABSOLUTE LYMPH COUNT 1.2 /CUMM (1.2-3.4); ABSOLUTE MONOCYTE COUNT 0.4 /CUMM (0.10-0.60); BASOPHIL % 0.3 % (0.0-2.0); EOSINOPHIL % 1.6 % (0-5); GRANULOCYTE % 71.6 % (42.2-75.2); HEMATOCRIT 40.4 % (42-52); MEAN CORPUSCULAR HGB CONC 33.9 G/DL (33.0-37.0); MEAN CORPUSCULAR VOLUME 79.8 FL (80.0-94.0); MEAN PLATELET VOLUME 8.5 FL (7.4-10.4); PLATELET COUNT 203 /CUMM (130-400); RBC DISTRIBUTION WIDTH 14.5 % (11.5-14.5); RED BLOOD CELL CT 5.07 /CUMM (4.70-6.10); WHITE BLOOD CELL COUNT 5.9 /CUMM (4.8-10.8)
--- NOTE | 2018-02-06 11:49 | PN- Att Addend ---
Attending Addendum Attending Brief Note Patient seen and examined, hard of hearing. Na is slightly worse today. pt remains on IV unasynn for aspiration pna. Vital Signs Date Time Temp Pulse Resp B/P B/P Pulse O2 O2 Flow FiO2 Mean Ox Delivery Rate 02/06 0913 76 114/60 94 Room Air 02/06 0634 98.1 80 20 139/73 94 Room Air 02/05 2117 99.3 71 17 118/80 94 Room Air 02/05 1400 98.6 80 16 114/72 93 Room Air on exam; awake, nad. cv; s1, s2, rrr resp; + junky bs. abd; soft, nt, bs+ ext; no edema Laboratory Tests 02/06 02/06 1025 0735 Chemistry Sodium (137 - 145 mmol/L) 146 H Potassium (3.5 - 5.1 mmol/L) 3.4 L Chloride (98 - 107 mmol/L) 111 H Carbon Dioxide (22 - 30 mmol/L) 25 Anion Gap (5 - 16) 9 BUN (9 - 20 mg/dL) 3 L Creatinine (0.7 - 1.2 mg/dL) 0.6 L Estimated GFR (>60 ml/min) > 60 BUN/Creatinine Ratio (7 - 25 %) 5.0 L Hematology CBC w Diff Pending WBC Pending RBC Pending Hgb Pending Hct Pending MCV Pending MCH Pending MCHC Pending RDW Pending Plt Count Pending MPV Pending A/P; 62 y/o M with h sig for multiple sclerosis, nonverbal and bedbound, dementia, neurogenic bladder, dysphagia with recurrent aspiration, thrombocytopenia, anxiety, depression, GERD admitted with aspiration PNA. Patient was seen by speech therapist and they recommended pured with pudding thick liquids. Patient remained on IV Unasyn. Please switch to oral Augmentin. Sodium was rising. We will start 250 cc of pudding thick free water every 6 hours. We will also give small amount of D5 water IV. Will replete potassium. Please recheck sodium in the evening. Will recheck labs in the morning also. If sodium still on the higher side, will hold tomorrow morning Lasix dose. Patient had already received this morning's Lasix dose. DVT prophylaxis: Lovenox.
[2018-02-06 14:39] VITALS: BP 110/80
[2018-02-06] MEDS ORDERED: AMOX-CLAV 875-1 EACH PO (20:56)
[2018-02-06 22:25] VITALS: BP 110/80
[2018-02-07 06:50] VITALS: BP 118/65
--- NOTE | 2018-02-07 07:28 | PN- Housestaff ---
Yu VELEZ,Celsa 02/07/18 0728: Subjective Follow-up For: Sepsis secondary to likely aspiration pneumonia Swallowing difficulties Multiple sclerosis with functional quadripalegia Subjective: Patient seen and examined. He can nod to communicate and not know when asked if he has any pain. No events overnight. His vital signs are stable. He has been tolerating his meals as well as the thickened water that we ordered for his hypernatremia. Review of Systems Constitutional: Reports: no symptoms. EENTM: Reports: no symptoms. Cardiovascular: Reports: no symptoms. Respiratory: Reports: no symptoms. Gastrointestinal: Reports: no symptoms. Genitourinary: Reports: no symptoms. Musculoskeletal: Reports: no symptoms. Skin: Reports: no symptoms. Objective Last 24 Hrs of Vital Signs/I&O Vital Signs Date Time Temp Pulse Resp B/P B/P Pulse O2 O2 Flow FiO2 Mean Ox Delivery Rate 02/07 0650 97.6 69 18 118/65 94 02/07 0000 95 Room Air 02/06 2225 97.9 69 17 110/80 95 Room Air 02/06 1910 95 Room Air 02/06 1600 96 Room Air 02/06 1439 97.9 72 18 110/80 95 Room Air 02/06 1319 Room Air Room Air Intake & Output 02/07 1600 02/07 0800 02/07 0000 Intake Total 240 60 Output Total Balance 240 60 Intake, Oral 240 60 Number 2 Bowel Movements Physical Exam General Appearance: Alert, Oriented X3, Cooperative, No Acute Distress Skin: No Rashes, No Breakdown, No Significant Lesion Skin Temp/Moisture Exam: Warm/Dry Cardiovascular: Regular Rate, Normal S1, Normal S2, No Murmurs Lungs: Clear to Auscultation, Normal Air Movement Abdomen: Normal Bowel Sounds, Soft, No Tenderness Neurological: Normal Speech Extremities: No Clubbing, No Cyanosis, No Edema Vascular: Normal Pulses, Pulses Symmetrical Current Medications: Current Medications Sig/Iam Start time Last Medication Dose Route Stop Time Status Admin Acetaminophen 325 MG Q6P PRN 02/03 1430 AC OH Albuterol Sulfate 3 ML BID 02/06 1434 AC 02/06 INH 1910 Amoxicillin/ 875 MG Q12 02/06 2100 AC 02/07 Clavulanate Potassium PO 0941 Ampicillin Sodium/ 3,000 MG Q6 02/03 1800 DC 02/06 Sulbactam Sodium IV 1130 Sodium Chloride 100 ML Atorvastatin Calcium 40 MG DAILY@1700 02/04 1700 AC 02/06 PO 1726 Baclofen 15 MG TID 02/04 1400 AC 02/07 PO 0941 Bisacodyl 10 MG DAILY NEEDED PRN 02/03 1430 AC OH Clonazepam 0.5 MG BID 02/04 1235 AC 02/07 PO 02/11 1234 0941 Dextrose/Water 500 ML BOLUS ONE 02/06 1000 DC 02/06 IV 02/06 1459 1024 Enoxaparin Sodium 40 MG DAILY@1600 02/04 1600 AC 02/06 SC 1726 Famotidine 20 MG DAILY 02/04 1235 AC 02/07 PO 0941 Furosemide 20 MG DAILY 02/05 1430 DC 02/06 PO 1025 Patient Medication 1 ED ONE ONE 02/06 1930 DC Teaching ED 02/06 193 Potassium Chloride 40 MEQ ONCE ONE 02/06 2100 DC 02/06 PO 02/06 2101 2314 Potassium Chloride 10 MEQ Q1H 02/06 1000 DC 02/06 IV 02/06 1101 1223 Potassium Chloride 20 MEQ DAILY 02/06 0900 AC 02/07 PO 0941 Sertraline HCl 100 MG DAILY 02/04 1235 AC 02/07 PO 0941 Last 24 Hrs of Lab/Ramon Results Last 24 Hrs of Labs/Mics: Laboratory Tests 02/07/18 0612: Anion Gap 8, Estimated GFR > 60, BUN/Creatinine Ratio 5.0 L 02/06/18 1858: Anion Gap 11, Estimated GFR > 60, BUN/Creatinine Ratio 5.0 L 02/06/18 1025: CBC w Diff NO MAN DIFF REQ, RBC 5.07, MCV 79.8 L, MCH 27.0, MCHC 33.9, RDW 14.5 , MPV 8.5, Gran % 71.6, Lymphocytes % 19.6 L, Monocytes % 6.9, Eosinophils % 1.6, Basophils % 0.3, Absolute Granulocytes 4.2, Absolute Lymphocytes 1.2, Absolute Monocytes 0.4, Absolute Eosinophils 0.1, Absolute Basophils 0 Assessment/Plan Assessment: 62-year-old male with a past medical history significant for multiple sclerosis, nonverbal and bedbound, dementia, neurogenic bladder, dysphagia with recurrent aspiration, thrombocytopenia, anxiety, depression, GERD that is brought in by ambulance to us from [facility] for fever, lethargy, shortness of breath. The patient has had multiple admissions for aspiration pneumonia and has had swallow evaluation done with recommendations to follow a pured and pudding thick liquid diet which the patient has been following while he is an extended care facility. The patient has recently had a few nosebleeds. He had desaturation down to 77% on room air today and required 5 L nasal cannula. Chest x-ray done at the facility showed no abnormality by as the patient was febrile with shortness of breath he was started on Levaquin. In the ED, patient had vital signs of temperature 99.2, heart rate 102, respiratory rate 24, blood pressure 115/70, O2 saturation of 94% on 6 L nasal cannula. Patient was able to breathe on room air and saturating 95% subsequently after respiratory treatment. EKG showed sinus tachycardia at a rate of 105, QTC 434, T-wave inversion at leads 3. CBC was mostly normal, potassium was 3.4, creatinine 0.5, troponin 0.01 Chest x-ray showed worsening hazy opacity at the left lung base with a small pleural effusion in addition to increasing airspace opacity, possibly atelectasis, aspiration, or pneumonia. Assessment Sepsis secondary to pneumonia caused by aspirated bacteria from food or secondary to bloody nose (bacterial/chemical) or pneumonitis caused by aspirate of food or blood Dysphagia on pure and pudding thick diet History of multiple sclerosis Mild hypernatremia Plan -Admitted patient to general medical floors for evaluation and treatment -Patient has been given ceftriaxone and azithromycin in the ED but we continued patient on Unasyn for coverage of anaerobic bacteria 3 g every 6 hours. Today, we will start patient on Augmentin 875 mg twice daily. -Supplemented potassium with 2 doses of 10 mEq IV as patient cannot tolerate K- Mirna or large pills. We will continue to check BEP and replete potassium as needed. -Patient was dehydrated on admission so we gave fluids and her Lasix. We restarted the patient's Lasix yesterday and will continue checking BEP and likely dosing with potassium. -Patient had mild hypernatremia today of 146. We will give 500 cc at 100 cc/h D5W and will also advised 250 cc of thick water by mouth every 6 hours. We will recheck his sodium level at 7 PM tonight and if it is further increased then we will hold his morning Lasix. -[facility] nebs for suction -Swallow evaluation done and suggested continued pured and pudding thick -Follow blood and lower respiratory cultures if he is able to produce -We have contacted the alf and Alexisakote that was on his medication reconcile is not being given and has not been given for some time. -Follow physical therapy evaluation -Nutrition evaluation -Continue home medications Lipitor, baclofen, sertraline, Pepcid in place of ranitidine, Klonopin. DNR/DNI Regular diet, pured and pudding thick DT prophylaxis with Lovenox Problem List: 1. Aspiration pneumonia Pain Ratin Pain Location: na Pain Goal: Remain pain free Pain Plan: na Tomorrow's Labs & Rationales: efrain Boykin MD,Annette 02/07/18 1054: Attending MD Review Statement Attending Statement Attending MD Statement: examined this patient, discuss w/resident/PA/ANAESTHETIC TECHNICIAN, agreed w/resident/PA/ANAESTHETIC TECHNICIAN, reviewed EMR data (avail), discussed with nursing, discussed with case mgmt, reviewed images, amended to note Attending Assessment/Plan: Patient seen and examined, he is not able to communicate as he is almost nonverbal. He noded his head and states that he is ok. He noded his head in no when asked about the pain. vss. on exam; awake, nad. cv; s1, s2, rrr resp; slightly better than before. abd; soft, nt, bs+ ext; no edema Laboratory Tests 02/07 02/06 0612 1858 Chemistry Sodium (137 - 145 mmol/L) 146 H 147 H Potassium (3.5 - 5.1 mmol/L) 4.1 3.3 L Chloride (98 - 107 mmol/L) 112 H 108 H Carbon Dioxide (22 - 30 mmol/L) 25 28 Anion Gap (5 - 16) 8 11 BUN (9 - 20 mg/dL) 3 L 3 L Creatinine (0.7 - 1.2 mg/dL) 0.6 L 0.6 L Estimated GFR (>60 ml/min) > 60 > 60 BUN/Creatinine Ratio (7 - 25 %) 5.0 L 5.0 L A/P; 62 y/o M with h sig for multiple sclerosis, nonverbal and bedbound, dementia, neurogenic bladder, dysphagia with recurrent aspiration, thrombocytopenia, anxiety, depression, GERD admitted with aspiration PNA. Sodium remained at the same range. Patient was able to take thickened liquids. We encourage free water intake which would be 250 cc every 4 hours of taken free water. Those instructions will also be added to the discharge paperwork. We will repeat his BEP next week. We are also holding Lasix for couple of days. Patient will be switched to oral Augmentin. Will complete a total of 7 day course. Left a msg for patient's sister.
[2018-02-07] MEDS ORDERED: LASIX20 M1 PO (08:59)
[2018-02-07] MEDS ORDERED: AMOX-CLAV 875-1 EACH PO (09:00)
[2018-02-07] MEDS ORDERED: GENERLAC10 GM/151 PO (11:01)
[2018-02-07] MEDS ORDERED: SENNA-GEN8.6 MG PO (11:02)
[2018-02-07 11:44] VITALS: BP 118/65
== END 2018-02-07 13:20 | DRG 177 ==
LOC: ERH 07:18 → 2NB 12:12 → ERHI 12:12 → ENRESERV 12:40 → ENTRNSPT 14:14 → EDTRNSPT 14:20 → EDTRNSPTSTS 14:20 → 2NB 14:32 → CMPTRNSPT 14:55 → 2NB 02-06 07:42 → ENPENDDIS 02-07 11:02 → 2NB 02-07 13:20
PROVIDERS: Emergency Medicine; Student in an Organized Health Care Education/Training Program
DX: J69.0 Pneumonitis due to inhalation of food and vomit (principal); J96.01 Acute respiratory failure with hypoxia; R53.2 Functional quadriplegia; F03.90 Unspecified dementia, unspecified severity, without behavioral disturbance, psychotic disturbance, mood disturbance, and anxiety; D69.6 Thrombocytopenia, unspecified; G35 Multiple sclerosis; F41.9 Anxiety disorder, unspecified; F32.9 Major depressive disorder, single episode, unspecified; Z74.01 Bed confinement status; N31.9 Neuromuscular dysfunction of bladder, unspecified; R13.10 Dysphagia, unspecified; K21.9 Gastro-esophageal reflux disease without esophagitis; Z66 Do not resuscitate
CPT/HCPCS: 2NBP; 36592; 71045; 82436; 87040; 87070; 93005; 93010; 99291; J0456; J0696; J1650; J7040; J7042; J7060